=== PATIENT | male | born 1960 | race Caucasian/White ===

== ENCOUNTER → 2020-02-04 | Outpatient (CLI) | payer BC | END | disposition home or self-care (01) | LOC: LABPAT 08:55 | PROVIDERS: ATTEND Orthopaedic Surgery | DX: Z01.812 Encounter for preprocedural laboratory examination (principal) | CPT/HCPCS: 87070 ==

== ENCOUNTER → 2020-02-13 | Outpatient (CLI) | payer BC ==
[2020-02-13 09:44] LABS: Appearance,Urine Clear (Clear); Bilirubin,Urine Negative (Negative); Blood,Urine Negative (Negative); Color,Urine Yellow; Glucose,Urine (UA) Negative (Negative); Ketones,Urine Negative (Negative); Leukocyte Esterase,Urine Negative (Negative); Nitrite,Urine Negative (Negative); Protein,Urine Negative (Negative); Specific Gravity,Urine 1.019 (1.001-1.035); Urobilinogen,Urine <2.0 mg/dL (<2.0)
[2020-02-13 09:46] LABS: Partial Thromboplastin Time 24.3 sec (22.0-30.0); Prothrombin Time 10.3 sec (9.0-12.0)
[2020-02-13 09:48] LABS: HCT 41.6 % (39.0-53.0); HGB 14.7 gm/dL (13.0-17.5); MCH 31.6 pg (25.0-35.0); MCHC 35.4 g/dL (31.0-37.0); MCV 89.3 fL (80.0-100.0); Mean Platelet Volume 8.4; Platelet Count 248 k/uL (150-450); RBC 4.66 m/uL (4.30-5.90); RDW 13.2 % (11.5-15.5); WBC 11.5 k/uL (3.8-10.6)
[2020-02-13 09:53] LABS: ALT 28 U/L (4-49); AST 28 U/L (17-59); African American GFR (CKD) >90 (>60 ml/min/1.73 sqM); Albumin 4.8 g/dL (3.5-5.0); Alkaline Phosphatase 85 U/L (38-126); Anion Gap 9 mmol/L; Blood Urea Nitrogen 15 mg/dL (9-20); Calcium 9.9 mg/dL (8.4-10.2); Carbon Dioxide 29 mmol/L (22-30); Chloride 100 mmol/L (98-107); Glucose 101 mg/dL (74-99); Non-African American GFR(CKD) 86 (>60 ml/min/1.73 sqM); Potassium 3.4 mmol/L (3.5-5.1); Sodium 138 mmol/L (137-145); Total Bilirubin 1.1 mg/dL (0.2-1.3); Total Protein 7.2 g/dL (6.3-8.2)
== END | disposition home or self-care (01) ==
LOC: LABPAT 08:08
PROVIDERS: ATTEND Orthopaedic Surgery
DX: Z01.818 Encounter for other preprocedural examination (principal); M16.12 Unilateral primary osteoarthritis, left hip
CPT/HCPCS: 36415; 80053; 81003; 85027; 85610; 85730; 86850; 86900; 86901

== ENCOUNTER 2020-02-19 06:59 | Day surgery (SDC) | payer BC ==
[2020-02-15 10:29] VITALS: BMI 27.8
[~2020-02-19 06:59] MED LIST: ACETAMINOPHEN TAB 500 MG TAB PO ONE; CLINDAMYCIN 900 MG in DEXTROSE 5% IN WATER 50 ML IVPB ONE; DEXAMETHASONE SOD PHOSPHATE 10 MG/ML 1 ML VIAL IV ONE; GABAPENTIN 300 MG CAP PO ONE; HYDROmorphone 0.5 MG/0.5 ML SYRINGE IVP PRN; LIDOCAINE 1% (10MG/ML) FOR IV START INTRADERMA PRN; MELOXICAM 7.5 MG TAB PO ONE; ONDANSETRON 4 MG/2 ML VIAL IVP ONE; ROPIVACAINE 246.25 MG, EPINEPHrine 0.5 MG, KETOROLAC 30 MG, cloNIDine HCL/PF 80 MCG, WA... MISCELLANE ONE; SCOPOLAMINE 1.5MG/72HR PATCH TRANSDERM ONE; TRANEXAMIC ACID 1,000 MG in SODIUM CHLORIDE 0.9% 100 ML IVPB ONE
[2020-02-19] MEDS ORDERED: HYDROcodone/APAP 5-325MG 1 EACH TAB PO PRN (07:05)
[2020-02-19] MEDS ORDERED: NALOXONE 0.4 MG/ML 1 ML VIAL IV PRN (07:05)
[2020-02-19] MEDS ORDERED: hydrOXYzine pamoate 25 MG CAP PO PRN (07:05)
[2020-02-19] MEDS ORDERED: MAGNESIUM HYDROXIDE 2,400 MG/10 ML CUP PO PRN (07:05)
[2020-02-19] MEDS ORDERED: HYDROmorphone 1 MG/ML 1 ML SYRINGE IVP PRN (07:05)
[2020-02-19] MEDS ORDERED: ONDANSETRON 4 MG/2 ML VIAL IVP PRN (07:05)
[2020-02-19] MEDS ORDERED: HYDROmorphone 0.5 MG/0.5 ML SYRINGE IVP PRN ×2 (07:05)
[2020-02-19] MEDS ORDERED: diazePAM 5 MG TAB PO PRN (07:05)
[2020-02-19] MEDS ORDERED: ACETAMINOPHEN TAB 500 MG TAB ONE (07:15)
[2020-02-19] MEDS ORDERED: ONDANSETRON 4 MG/2 ML VIAL ONE (07:15)
[2020-02-19] MEDS ORDERED: LACTATED RINGERS 1,000 ML IV ONE ×2 (07:32→10:25)
[2020-02-19] MEDS ORDERED: SODIUM CHLORIDE 0.9% IRRIG 1,000 ML BTL IRRIGATION ONE (09:05)
[2020-02-19] MEDS ORDERED: MIDAZOLAM 2 MG/2 ML VIAL ONE (09:05)
[2020-02-19] MEDS ORDERED: fentaNYL (PF) 50 MCG/ML 2 ML AMP ONE (09:05)
[2020-02-19] MEDS ORDERED: HEPARIN SODIUM,PORCINE 10,000 UNIT/ML 1 ML VIAL ONE (09:05)
[2020-02-19] MEDS ORDERED: PROPOFOL 10 MG/ML 20 ML VIAL IV ONE (09:05)
--- NOTE | 2020-02-19 10:41 | P.OP ---
Date of Procedure: 02/19/20 Preoperative Diagnosis: Severe osteoarthritis left hip Postoperative Diagnosis: Severe osteoarthritis left hip Procedure(s) Performed: Left total hip arthroplasty with a direct anterior approach Implants: Adams and nephew Polarstem size 5 standard Adams & Nephew R3, 3 hole acetabular shell, 52 mm Adams & Nephew reflection 6.5 mm cancellus screw, 20 mm 2 Adams [employer] Nephew R3, XLPE 20 acetabular liner Adams & Nephew Oxinium femoral head 36 m, +0 All components were press-fit. The articulation is Oxinium on polyethylene. Anesthesia: spinal Surgeon: Heladio Pepe Radiographer Technologist #1: Vane Russell Estimated Blood Loss (ml): 200 (117 mL returned with Cell Saver) Pathology: other (Femoral head) Condition: stable Disposition: PACU Indications for Procedure: After failure of conservative treatment we discussed the surgical and nonsurgical treatment options at length. Patient wishes to proceed with a total hip arthroplasty with a direct anterior approach. Complications specific to this procedure were discussed at length, including but not limited to infection, leg length discrepancy, dislocation, and nerve injury. Covid-19 was also discussed at length with the patient, and they are aware of the current policies and procedures. The patient was given the option of delaying surgery, but they elect to proceed knowing these risks. Patient is aware of all these complications and informed consent was obtained Operative Findings: The operative findings are consistent with severe osteoarthritis of the left hip Description of Procedure: Patient was seen and evaluated in the preoperative area, consent was reviewed, and the surgical site was marked with a skin marker. Patient was then brought to the operating room and given prophylactic antibiotics intravenously. 1 g of Tranexamic acid was also given. A spinal anesthetic was administered by the anesthesia department. The patient was then placed on the [place] table with the bony prominences well-padded. The hip area was then prepped and draped in usual sterile fashion. A universal timeout was then performed, which confirmed the patient's name, surgical site, ALLERGIES, and procedure being performed. Next the incision site was located at 1 cm distal and 1 cm lateral to the anterior superior iliac spine. The skin and subcutaneous tissues were sharply incised. Incision was carefully dissected down to the fascia overlying the tensor fascia rolly muscle. This fascia was then incised in line with the incision. Next, using blunt finger dissection, the tensor fascia rolly muscle was dissected off its investing fascia. The muscle was then carefully retracted laterally with a cobra retractor over the lateral neck of the femur. Next, the circumflex vessels were identified and cauterized using the AquaMantis device. The anterior hip capsule was then exposed. The capsule was then opened and an inverted T fashion. Cobra retractors were then placed intracapsularly. The proximal femur was then visualized. The femoral neck was then osteotomized appropriate level above the lesser trochanter. Small amount of traction was placed with the [place] table. A small wedge of bone was then removed from the remaining femoral head. Next, using a corkscrew femoral head was easily removed from the acetabulum. On gross visual inspection, the femoral head had complete loss of articular cartilage in multiple periarticular osteophytes. Attention was then turned to the acetabulum. the acetabulum was exposed and any remaining labrum was excised. Sequential reaming of the acetabulum was performed using fluoroscopic guidance. When the appropriate size was reached, a trial was then placed. The position and fit of the trial was checked with fluoroscopy. The trial was then removed. Then, using fluoroscopic guidance, the final implant was impacted at 20 of anteversion and 40 of abduction, and fully seated in the acetabulum. 2 screws were then placed in the acetabulum. Again fluoroscopy was used to check position of the screws. Next, the liner was then impacted, with a 20 elevated liner located in the anterior superior quadrant. Component locking was confirmed. Attention was then directed to the femur. With the aid of the [place] table, the femur was externally rotated to approximately 130, extended, and abducted under the opposite leg. A side hook was then placed under the proximal femur, and the side hook elevator was used to elevate the proximal femur. Retractors were then placed. A capsular release was performed, as well as a release of the conjoined tendon, which afforded excellent visualization of the proximal femur. Next, a box osteotome was used to lateralize the proximal femur. A hand almond blancher was then used to locate the femoral canal. Sequential broaching was then performed with appropriate size which afforded excellent fixation in the proximal femur. A trial was then placed with appropriate head and neck, and the hip was gently reduced with the aid of the [place] table. Fluoroscopy was then used to check position of the components, as well as to ensure equal leg lengths. The hip was then gently dislocated and the trials were then removed. Final implants were then impacted and the hip was again reduced. Final fluoroscopic x-rays confirmed that the components were in anatomic position, as well as equal leg lengths. The hip was also taken through range of motion, and found to be stable. The hip was then copiously irrigated with antibiotic solution with pulsatile lavage. The hip was then irrigated with Irrisept solution. The soft tissues were then injected with a ropivacaine solution, which consisted of 246.25 mg of ropivacaine, 0.5 mg of epinephrine, 30 mg of Toradol, 80 g of clonidine, and 48.45 mL of sterile water, for a total of 100 mL of fluid injected. A second dose of 1 g of Tranexamic acid was also given. the fascia was then closed with 2-0 strata fix suture. The subcutaneous tissue was closed with 3-0 Vicryl. The subcuticular tissue was closed with 3-0 strata fix suture. The skin was then closed with Dermabond glue and a sterile silver dressing. The patient was then transferred to the recovery room in stable condition. The study assistant NEO Joseph was required due to the complexity of surgery, and the need for skilled surgical processor for positioning, draping, exposure, retraction, and closure of the wound.
--- NOTE | 2020-02-19 11:47 | XR ---
Left hip HISTORY: Status post left hip arthroplasty or graph single frontal view of the left hip Patient shows status post left hip arthroplasty change. There is anatomic alignment. Lucency present in the soft tissues. There are vascular calcifications noted. impression: Orthopedic follow-up
[2020-02-19] MEDS: LACTATED RINGERS 1,000 ML IV SCH (13:50)
[2020-02-19 14:17] VITALS: RESP 20
[2020-02-19] MEDS: HYDROcodone/APAP 5-325MG 1 EACH TAB PO PRN ×2 (15:47→23:53)
--- NOTE | 2020-02-19 16:44 | FL ---
EXAMINATION TYPE: FL guidance operating room DATE OF EXAM: 02/19/2020 CLINICAL HISTORY: Left hip arthroplasty TECHNIQUE: Fluoroscopy. COMPARISON: None. FINDINGS: Fluoroscopic guidance was provided during procedure by performing physician in operating r oom. A total of 52 seconds of fluoroscopic time was utilized during the procedure and 2 spot images w as acquired. Please see performing physicians operative note for additional details. IMPRESSION: As Above.
--- NOTE | 2020-02-19 16:45 | XR ---
EXAMINATION TYPE: XR Hip Limited LT DATE OF EXAM: 02/19/2020 CLINICAL HISTORY: Left hip arthroplasty TECHNIQUE: Fluoroscopy. COMPARISON: None. FINDINGS: Fluoroscopic guidance was provided during procedure by performing physician in the operati ng room. A total of 52 seconds of fluoroscopic time was utilized during the procedure and 2 spot imag es was acquired. Please see operative note for additional details. IMPRESSION: As Above.
[2020-02-19] MEDS: CLINDAMYCIN 900 MG in DEXTROSE 5% IN WATER 50 ML IVPB SCH ×4 (17:49→23:54)
[2020-02-19] MEDS: SODIUM CHLORIDE 0.9% 1,000 ML IV SCH ×2 (19:00→20:10)
[2020-02-19] MEDS: ASPIRIN 325 MG TAB PO SCH (20:09)
--- NOTE | 2020-02-19 20:52 | CONS ---
CONSULTATION Followup, status post hip replacement. He has a history of hypertension, dyslipidemia, heart disease, weight loss, hearing disorder, glasses, lung disease unsteady gait. ALLERGIES: PENICILLIN. SURGICAL HISTORY: Right hand, lumbar. REVIEW OF SYSTEMS: Fourteen-point review of systems otherwise negative. PHYSICAL EXAMINATION: Vital signs are stable. CARDIOVASCULAR: S1, S2. LUNGS: Clear. GI: Soft. Increased bowel sounds. Possibly some constipation. The patient is requesting something for constipation. HEMATOLOGY: Negative Homans. PSYCH: Fair mood and affect. ASSESSMENT: 1. Possible constipation. Slightly increased bowel sounds. Will give him something for constipation at this time. Continue home medicines. 2. Hypertension. 3. Gastroesophageal reflux disease. 4. Dyslipidemia. 5. Neuropathy, etc. No signs of any chest pain or shortness of breath. Appears medically stable at this time. MMODL / IJN: [id number] /
[2020-02-19] MEDS ORDERED: SENNOSIDES-DOCUSATE SODIUM 1 EACH TAB PO SCH (21:00)
[2020-02-20] MEDS: LACTATED RINGERS 1,000 ML IV SCH (06:02)
[2020-02-20] MEDS: HYDROcodone/APAP 5-325MG 1 EACH TAB PO PRN (07:35)
[2020-02-20] MEDS ORDERED: SYMBICORT 80-4.5 MCG INHALER INHALATION SCH (08:00)
[2020-02-20 08:46] LABS: Basophils % (A) 0 %; Eosinophils % (A) 0 %; HCT 34.8 % (39.0-53.0); HGB 11.9 gm/dL (13.0-17.5); Lymphocytes % (A) 11 %; MCH 31.8 pg (25.0-35.0); MCHC 34.1 g/dL (31.0-37.0); MCV 93.3 fL (80.0-100.0); Mean Platelet Volume 8.8; Monocytes # (A) 1.1 k/uL (0-1.0); Monocytes % (A) 6 %; Neutrophils # (A) 14.8 k/uL (1.3-7.7); Neutrophils % (A) 82 %; Platelet Count 223 k/uL (150-450); RBC 3.73 m/uL (4.30-5.90); RDW 13.2 % (11.5-15.5)
[2020-02-20] MEDS ORDERED: TAMSULOSIN 0.4 MG CAP.ER.24H PO SCH (09:00)
[2020-02-20] MEDS ORDERED: PANTOPRAZOLE 40 MG TABLET PO SCH (09:00)
[2020-02-20] MEDS ORDERED: POTASSIUM CHLORIDE ER 10 MEQ TAB.ER.PRT PO SCH (09:00)
[2020-02-20] MEDS ORDERED: FLUTICASONE 50MCG/SPRAY NASAL 16GM EA NOSTRIL SCH (09:00)
[2020-02-20] MEDS ORDERED: ATORVASTATIN 40 MG TAB PO SCH (09:00)
[2020-02-20] MEDS ORDERED: MELOXICAM 7.5 MG TAB PO SCH (09:00)
[2020-02-20] MEDS ORDERED: CHLORTHALIDONE 25 MG TAB PO SCH (09:00)
--- NOTE | 2020-02-20 09:26 | P.DS ---
Providers Expected date of discharge: 02/20/20 Attending physician: Heladio Pepe Consults: 02/19/20 07:05 Consult Physician Routine Consulting Provider: Jose Francisco Rg Consult Reason/Comments: medical management Do you want consulting provider notified?: Yes Primary care physician: Stated None - Discharge Diagnosis(es) (1) S/P total hip arthroplasty Current Visit: Yes Status: Acute (2) Osteoarthritis of left hip Current Visit: Yes Status: Acute Hospital Course: This is a 60-year-old male with known history of degenerative arthritis of the left hip. The patient presents for evaluation. After discussion and consideration patient elects to proceed with total hip arthroplasty. The patient is seen preoperatively by Dr. Pepe and medically cleared for surgery by their primary care physician. Patient is admitted to [facility] on 02/19/2020 for total hip arthroplasty. The procedures performed without complication or sequelae. The patient is doing well postoperatively. Labs and vital signs are stable on day of discharge. On day of discharge patient's hip incision is healing well. There is minimal erythema. There is no drainage noted at this time. There is minimal soft tissue swelling to the hip and thigh. Patient has full foot and ankle motion without difficulty or pain. Calf is soft and nontender to palpation. Neurovascular status to the left lower extremity is intact. Patient is discha rged home in good condition. Opioid start talking form is reviewed and signed at patient bedside. Please see med rec for accurate list of home medications. Plan - Discharge Summary Discharge Rx Participant: Yes New Discharge Prescriptions: New Aspirin 325 mg PO BID #60 tab HYDROcodone/APAP 5-325MG [[place] 5-325] 1 - 2 tab PO Q6HR PRN #48 tab PRN Reason: Pain Sennosides [Senokot] 2 tab PO DAILY PRN #60 tablet PRN Reason: Constipation No Action Tamsulosin [Flomax] 0.4 mg PO DAILY polyethylene glycoL 3350 [Miralax] 17 gm PO HS Omeprazole [PriLOSEC] 40 mg PO DAILY Ibuprofen [Motrin] 800 mg PO Q8H PRN PRN Reason: Pain Fluticasone Nasal [place] [Flonase Nasal [place]] 1 spray EA NOSTRIL DAILY Atorvastatin [Lipitor] 40 mg PO DAILY Z-Quill 1 dose PO HS PRN PRN Reason: Insomnia Testosterone [Androgel 1% Gel Packet] 1 packet TOPICAL DAILY Potassium Chloride [Klor-Con 10] 10 meq PO DAILY Fluticasone Propion/Salmeterol [Fluticasone-Salmeterol 100-50] 1 inhalation PO DAILY Fish Oil/Dha/Epa [Fish Oil 1,200 mg Fish Oil] 1 each PO DAILY Chlorthalidone 50 mg PO DAILY Discharge Medication List Atorvastatin [Lipitor] 40 mg PO DAILY 02/15/20 [History] Chlorthalidone 50 mg PO DAILY 02/15/20 [History] Fish Oil/Dha/Epa [Fish Oil 1,200 mg Fish Oil] 1 each PO DAILY 02/15/20 [History] Fluticasone Nasal [place] [Flonase Nasal [place]] 1 spray EA NOSTRIL DAILY 02/15/20 [History] Fluticasone Propion/Salmeterol [Fluticasone-Salmeterol 100-50] 1 inhalation PO DAILY 02/15/20 [History] Ibuprofen [Motrin] 800 mg PO Q8H PRN 02/15/20 [History] Omeprazole [PriLOSEC] 40 mg PO DAILY 02/15/20 [History] Potassium Chloride [Klor-Con 10] 10 meq PO DAILY 02/15/20 [History] Tamsulosin [Flomax] 0.4 mg PO DAILY 02/15/20 [History] Testosterone [Androgel 1% Gel Packet] 1 packet TOPICAL DAILY 02/15/20 [History] Z-Quill 1 dose PO HS PRN 02/15/20 [History] polyethylene glycoL 3350 [Miralax] 17 gm PO HS 02/15/20 [History] Aspirin 325 mg PO BID #60 tab 02/20/20 [Rx] HYDROcodone/APAP 5-325MG [[place] 5-325] 1 - 2 tab PO Q6HR PRN #48 tab 02/20/20 [Rx] Sennosides [Senokot] 2 tab PO DAILY PRN #60 tablet 02/20/20 [Rx] Follow up Appointment(s)/Referral(s): Heladio Pepe DO [Doctor of Osteopathic Medicine] - 03/05/20 9:30 am (with [facility]) Activity/Diet/Wound Care/Special Instructions: Weightbearing as tolerated with walker. Leave dressing intact. Dressing may be removed by home care nurse or by patient in 10 days. May shower with dressing on. Recommend use of compression stockings daily until follow up to help prevent swelling and blood clots. May remove at night before sleeping. Please follow-up with [facility] in 2 weeks and call with any questions or concerns, . Discharge Disposition: HOME WITH HOME HEALTH SERVICES
[2020-02-20] MEDS: ASPIRIN 325 MG TAB PO SCH (09:44)
[2020-02-20 11:16] VITALS: BP 103/60; PULSE 56; TEMP 97.9
== END 2020-02-20 11:51 | disposition home health service (06) ==
LOC: OR 06:59 → 4SSUR 10:45 → OR 02-20 11:51
PROVIDERS: ATTEND Orthopaedic Surgery
DX: M16.12 Unilateral primary osteoarthritis, left hip (principal); I11.9 Hypertensive heart disease without heart failure; K21.9 Gastro-esophageal reflux disease without esophagitis; G62.9 Polyneuropathy, unspecified; J44.9 Chronic obstructive pulmonary disease, unspecified; E78.5 Hyperlipidemia, unspecified; H91.90 Unspecified hearing loss, unspecified ear; R26.9 Unspecified abnormalities of gait and mobility; Z99.89 Dependence on other enabling machines and devices; Z79.890 Hormone replacement therapy; Z79.1 Long term (current) use of non-steroidal anti-inflammatories (NSAID); Z79.51 Long term (current) use of inhaled steroids; Z88.0 Allergy status to penicillin; Z87.891 Personal history of nicotine dependence; Z98.890 Other specified postprocedural states; Z79.899 Other long term (current) drug therapy
CPT/HCPCS: 27130; 94640; 97161; 97535; 97165; 86891; 86900; 86901; 84132; 85025; 86850; 88300; 73501; P9022; C1776; J0171; J1100; J2405; J1885; J2795; J0735